=== PATIENT | male | born 1960 | race Caucasian/White ===

== ENCOUNTER → 2020-03-05 | Outpatient (CLI) | payer OTHER ==
--- NOTE | 2020-03-05 14:40 | RADIOLOGY REPORT (SQ) ---
EXAM DESCRIPTION: CT CHEST WITHOUT IMAGES COMPLETED DATE/TIME: 03/05/2020 2:15 pm REASON FOR STUDY: (R91.1)SOLITARY PULMONARY NODULE J43.9 EMPHYSEMA, UNSPECIFIED J45.909 UNSPECIFIE D ASTHMA, UNCOMPLICATED R91.1 SOLITARY PULMONARY NODULE COMPARISON: None. TECHNIQUE: CT scan performed of the chest without intravenous contrast. Images reviewed with lung, soft tissue and bone windows. Reconstructed coronal and sagittal MPR images reviewed. All images st ored on PACS. All CT scanners at this facility use dose modulation, iterative reconstruction, and/or weight based d osing when appropriate to reduce radiation dose to as low as reasonably achievable (ALARA). [facility]: Dose Right [facility]: CareDose [facility]: Dose Right [facility]: Teradose 4D [facility]: Smart [place] RADIATION DOSE: CT Rad equipment meets quality standard of care and radiation dose reduction techniq ues were employed. CTDIvol: 4.4 mGy. DLP: 194 mGy-cm. mGy. LIMITATIONS: No technical limitations. FINDINGS: LUNGS AND PLEURA: Centrilobular emphysema predominantly in the upper lobes. No pulmonary nodule or mass is appreciated. HILAR AND MEDIASTINAL STRUCTURES: No identified masses or abnormal nodes. No obvious aneurysm. HEART AND VASCULAR STRUCTURES: No aneurysm. No pericardial effusion. UPPER ABDOMEN: No significant findings. Limited exam. THYROID AND OTHER SOFT TISSUES: No masses. No adenopathy. BONES: No significant finding. HARDWARE: None in the chest. OTHER: No other significant findings. IMPRESSION: Centrilobular emphysema. No pulmonary nodule or mass is seen. If the patient has a pre vious study demonstrating such a nodule, it would be helpful to obtain that study for comparison. TECHNICAL DOCUMENTATION: JOB ID: [id number] Quality ID # [id number]: Final reports with documentation of one or more dose reduction techniques (e.g., Au tomated exposure control, adjustment of the mA and/or kV according to patient size, use of iterative reconstruction technique) 2010 [employer]- All Rights Reserved Reading location - IP/workstation name: [email or web address]
== END ==
LOC: RAD 14:00
PROVIDERS: ATTEND Internal Medicine Critical Care Medicine
DX: J43.9 Emphysema, unspecified (principal); J45.909 Unspecified asthma, uncomplicated; R91.1 Solitary pulmonary nodule; Z72.0 Tobacco use; I73.9 Peripheral vascular disease, unspecified; I10 Essential (primary) hypertension; M19.90 Unspecified osteoarthritis, unspecified site
CPT/HCPCS: 71250